=== PATIENT | male | born 1930 | race Caucasian/White ===

== ENCOUNTER 2017-06-22 10:58 | Day surgery (SDC) | payer OTHER ==
[~2017-06-22] VITALS: Ht 165.1 cm; Wt 63.5 kg
[~2017-06-22 10:58] MED LIST: ASPIRIN81 M2 PO; BP MED PO; CHOLESTEROL MED; SIMVASTATIN
[2017-06-22] MEDS ORDERED: DIOVAN80 MG PO (11:45)
[2017-06-22] MEDS ORDERED: OMEPRAZOLE20 MG PO (11:46)
[2017-06-22] MEDS ORDERED: ATORVASTATIN CA40 MG PO (11:46)
[2017-06-22] MEDS ORDERED: AMLODIPINE BESY10 MG PO (11:47)
[2017-06-22] MEDS ORDERED: HYTRIN2 MG PO (11:47)
[2017-06-22 11:49] VITALS: BP 171/79
[2017-06-22 15:15] VITALS: BP 171/87
[2017-06-22 15:45] VITALS: BP 152/71
== END 2017-06-22 16:12 | disposition home or self-care (01) ==
LOC: SDC 10:58
DX: H33.42 Traction detachment of retina, left eye (principal); H35.3220 Exudative age-related macular degeneration, left eye, stage unspecified; I12.9 Hypertensive chronic kidney disease with stage 1 through stage 4 chronic kidney disease, or unspecified chronic kidney disease; N18.3 Chronic kidney disease, stage 3 (moderate); R73.02 Impaired glucose tolerance (oral); E78.5 Hyperlipidemia, unspecified; K21.9 Gastro-esophageal reflux disease without esophagitis; Z85.46 Personal history of malignant neoplasm of prostate; Z88.8 Allergy status to other drugs, medicaments and biological substances; Z82.49 Family history of ischemic heart disease and other diseases of the circulatory system
CPT/HCPCS: J0690; J0713; J3300

== ENCOUNTER 2017-10-29 15:01 | Emergency (ER) | payer OTHER ==
[~2017-10-29] VITALS: Ht 165.1 cm; Wt 73.5 kg
[~2017-10-29 15:01] MED LIST changes: +AMLODIPINE BESY10 MG PO; +ATORVASTATIN CA40 MG PO; +DIOVAN80 MG PO; +HYTRIN2 MG PO; +OMEPRAZOLE20 MG PO
[2017-10-29 16:56] LABS: BASOPHIL (%) 0.6 % (0-1); EOSINOPHIL (%) 4.8 % (0-5); EOSINOPHIL COUNT 0.2 K/uL (0-0.3); HEMATOCRIT 36.8 % (38.0-50.0); HEMOGLOBIN 12.2 G/DL (12.5-16.6); IMMATURE GRANULOCYTE (%) 0.4 % (0.0-0.7); LYMPHOCYTE (%) 12.7 % (15-42); LYMPHOCYTE COUNT 0.6 K/uL (1.0-2.8); MCH 31.4 PG (29.0-34.0); MCHC 33.2 G/DL (30.0-36.0); MCV 94.6 FL (86-99); MONOCYTE (%) 10.1 % (3-12); MONOCYTE COUNT 0.5 K/uL (0-0.8); NEUTROPHIL (%) 71.4 % (45-76); NEUTROPHIL COUNT 3.6 K/uL (1.8-6.4); PLATELET COUNT 169 K/uL (156-360); RBC DIS.WIDTH-CV 12.9 % (11.8-14.6); RBC DIS.WIDTH-SD 44.5 % (39-53); RED BLOOD COUNT 3.89 M/uL (4.00-5.50)
[2017-10-29 17:08] LABS: ALBUMIN 4.2 g/dL (3.2-4.8)
[2017-10-29 17:09] LABS: CHLORIDE 107 mEq/L (99-109); POTASSIUM 4.6 mEq/L (3.7-5.4); SODIUM 144 mEq/L (136-147)
[2017-10-29 17:11] LABS: GLUCOSE 89 mg/dL (70-99)
[2017-10-29 17:13] LABS: TOTAL BILIRUBIN 0.5 mg/dL (0.0-1.0)
[2017-10-29 17:14] LABS: ALKALINE PHOSPHATASE 69 IU/L (3-129)
[2017-10-29 17:15] LABS: CREATININE 1.8 mg/dL (0.6-1.3); GFR ESTIMATE (CALCULATED) 38 mL/min/ (58.99-99999)
[2017-10-29 17:16] LABS: AST (GOT) 24 IU/L (2-34); UREA NITROGEN (BUN) 30 mg/dL (9-23)
[2017-10-29 17:18] LABS: ALT (GPT) 17 IU/L (3-49)
[2017-10-29 17:21] LABS: TROP-I INTERPRETATION NEGATIVE; TROPONIN-I < 0.01 ng/mL (0.0-0.30)
[2017-10-29 21:03] LABS: TROP-I INTERPRETATION NEGATIVE; TROPONIN-I < 0.01 ng/mL (0.0-0.30)
[2017-10-29 21:44] VITALS: BP 192/85
== END 2017-10-29 21:45 | disposition home or self-care (01) ==
LOC: EME 15:01
PROVIDERS: Emergency Medicine
DX: R06.00 Dyspnea, unspecified (principal); I10 Essential (primary) hypertension; E07.9 Disorder of thyroid, unspecified; E78.5 Hyperlipidemia, unspecified; Z79.82 Long term (current) use of aspirin
CPT/HCPCS: 71046; 71250; 80053; 83880; 84484; 85025; 85379; 93005; 99281; 99285